=== PATIENT | female | born 1960 | race Caucasian/White ===

== ENCOUNTER 2018-03-05 20:28 | Emergency (ER) | payer OTHER ==
[~2018-03-05] VITALS: Ht 167.6 cm; Wt 76.0 kg
[2018-03-05] MEDS ORDERED: diazepam 5mg tablet PO ONE (22:05)
[2018-03-05] MEDS ORDERED: ketorolac tromethamine 15mg/ml inj. IM ONE (22:05)
[2018-03-05] MEDS ORDERED: METH-360 PO (22:08)
[2018-03-05] MEDS ORDERED: NAPR-56 PO (22:08)
[2018-03-05 23:05] VITALS: BP 149/77
== END 2018-03-05 23:10 | disposition home or self-care (01) ==
LOC: ER 20:29
DX: M54.41 Lumbago with sciatica, right side (principal); G89.29 Other chronic pain; Z98.890 Other specified postprocedural states
CPT/HCPCS: 96372; 99283; J1885